=== PATIENT | female | born 1975 | race Caucasian/White ===

== ENCOUNTER 2020-02-24 13:29 | Outpatient (CLI) | payer OTHER, SELFPAY ==
[2020-02-24 14:04] LABS: Albumin Level 3.9 g/dL (3.5-5.1)
[2020-02-24 14:14] LABS: Prealbumin 21.9 mg/dL (17.6-36.0)
[2020-02-24 14:40] LABS: Iron 68 ug/dL (37-170)
[2020-03-03 12:25] LABS: Vitamin B1 19 nmol/L (8-30)
== END 2020-02-24 13:30 | disposition home or self-care (01) ==
PROVIDERS: Visit Provider Surgery Plastic and Reconstructive Surgery
DX: L57.4 Cutis laxa senilis (principal)
CPT/HCPCS: 36415; 82040; 83540; 84134; 84425

== ENCOUNTER 2020-02-26 00:26 | Outpatient (CLI) | payer OTHER, SELFPAY ==
[2020-02-26 18:31] LABS: SARS-CoV-2 RNA PCR Negative
== END 2020-02-26 00:27 | disposition home or self-care (01) ==
LOC: ANHCOVIDDT 00:26
PROVIDERS: Visit Provider Surgery Plastic and Reconstructive Surgery
DX: Z01.812 Encounter for preprocedural laboratory examination (principal); Z11.59 Encounter for screening for other viral diseases
CPT/HCPCS: 87635; C9803; U0003

== ENCOUNTER 2020-02-29 02:04 | Day surgery (SDC) | payer OTHER, SELFPAY ==
[2020-02-16 10:50] VITALS: BMI 29.8
[2020-02-29] VITALS (14 sets, daily range): BP systolic 112–143; BP diastolic 60–98; PULSE 79–114; RESP 16–20; TEMP 36.1–37.2; O2SAT 94–100
[2020-02-29] MEDS: LACTATED RINGERS 1,000 ML 30 ML IV CONT ×2 (06:40→14:59)
--- NOTE | 2020-02-29 06:41 | WPDHPUPDATE1 ---
History and Physical Update Update Date/Time: 02/29/20 06:41 History and Physical has been reviewed, including an updated exam of the patient. There are NO changes in the patient's condition. Risks, benefits, and alternatives have been discussed and questions answered. Patient agrees to proceed with procedure.
[2020-02-29 07:01] LABS: Urine Cotinine NEGATIVE
--- NOTE | 2020-02-29 07:16 | WPDANESEPPF ---
Anes - Initial Pre Proc Eval Procedure: Operation Date: 02/29/20 07:30 Proposed Procedures p Belt Lipectomy, - Javad Steen MD s Bilateral Lateral Breast Liposuction - Javad Steen MD s Brachioplasty - Javad Steen MD Date/Time: 02/29/20 07:16 Surgeon: Javad Steen MD Pre Op Diagnosis: skin laxity Patient Data Age: 44 Gender: F Height: 5 ft 1 in Weight: 71.67 kg Allergies Allergy/AdvReac Type Severity Reaction Status Date / Time No Known Allergies Allergy Verified 10/18/19 08:13 Home Medications Medication Instructions Recorded Confirmed Type cetirizine 10 mg capsule 10 mg PO DAILY 10/18/19 02/16/20 History fluticasone propionate 50 1 spray NASAL DAILY 10/18/19 02/16/20 History mcg/actuation nasal spray,suspension levothyroxine 125 mcg tablet 125 mcg PO DAILY 10/18/19 02/16/20 History Cd-I-wmfho-B12-L.acid,plan-inu 1 cap PO DAILY 02/16/20 02/16/20 History [Vitabex Iron] Laboratory Tests 02/29/20 06:26 Cotinine Negative Patient hx anesthesia problems: none Family hx anesthesia problems: none PMFSH Surgical History Surgical History History of gastric bypass Two thousand seventeen. Maximum weight 238 pounds. History of thyroidectomy History of tonsillectomy History of wisdom tooth extraction Social History Social History Smoking status: Never smoker Substance use: never Substance use type: does not use Living arrangements: with family Spiritual care concerns: No Anes - Eval Final PreProcedure Day of Procedure 02/29/20 07:16 Patient weight: overweight Heart: regular rate and rhythm Lungs: clear to auscultation Airway: Mallampati scale class II Neurological: alert and oriented Last oral intake: >/= 8 hours ASA classification: II Emergent: no Anesthetic plan: proceed Anesthesia type and monitoring: general ETT and standard monitoring Informed Consent: The patient's anesthetic plan and its attendant risks and benefits were discussed with the patient/family/POA. Questions were solicited and answers provided to the satisfaction of the patient/family/POA.
[2020-02-29] MEDS: ceFAZolin 2 GM/D5W 50 ML 2 GM/50 ML BAG IVPB (07:29)
[2020-02-29] MEDS: ceFAZolin SODIUM 1 GM VIAL 2 GM IV PUSH (11:51)
--- NOTE | 2020-02-29 14:34 | PM.PROC ---
Procedure Note - Detailed Date of procedure: 02/29/20 Pre-op diagnosis: skin laxity Post-op diagnosis: same Procedure performed: 1. Belt Lipectomy 2. Suction lipectomy bilateral lateral chest wall. 3. Bilateral brachioplasty Description of procedure: She is here today for the above procedures. Previously and again today the risks, benefits, alternatives were discussed in extensive detail. I wanted her to be very realistic about the risks involved as well as expectations. We discussed aftercare and what to monitor for. I was very upfront about the risks of wound breakdown leading to loss of skin, open wounds, and need for additional procedures with permanent abdominal deformity. We discussed DVT/PE risks and management. Made sure answered all of her questions to her satisfaction today and consent was obtained. She was marked in the preoperative holding area with their verification. While marking the posterior body lift I did have the patient flexed 20-30 degrees at waist to simulate the abdominoplasty closure. The patient was taken to the operating room. Anesthesia was provided by anesthesiology. A junior catheter was started. She was placed prone on the operating room table with care taken to protect all bony prominences. She was prepped and draped in a standard sterile fashion. A surgical time-out was taken. The area was tumesced with a tumescent solution for the planned resection as well as the planned suction lipectomy areas. I proceeded 1st with suction lipectomy. This was a 4 mm basket cannula using the S.A.F.E. technique. This was to a rolling pinch test. A 15 blade was used to make the upper insicison. dissection was continued elevating inferior just what was necessary for good tension-free closure. Placed the bed in quique-knife position to stimulate the abdominoplasty. At the sacral area midline a mass was noted which very card / calcified. It was not fixed. Sent to pathology. I irrigated copiously with saline solution and verified strict hemostasis. I closed with 2-0 Vicryl followed by 3-0 strata fix and running subcuticular 4-0 Monocryl and tissue glue. There was no tension on the closure. We then placed the patient supine on the operating room table. I used tumescent solution on bilateral arms as well as completion of the lateral chest wall liposuction areas. I completed the lateral chest wall liposuction 1st in the above technique to a rolling pinch test. I then proceeded the brachioplasty. I completed S.A.F.E. suction lipectomy of the arm completely defatting the area to be resected. Once I was confident with the removal I proceeded in a strip avulsion technique from proximal to distalal closing was we go using 2-0 Vicryl, 3-0 Stratafix, 4-0 Monocryl and ster-strips. We proceeded to the abdominoplasty. I placed the patient in a flexed position to verify the upper and lower markings would reach. I then placed her supine. A thorough abdominal examination was completed. Stab incisions were made and used tumescent solution. A 10 blade was used to make the upper incision. I continued dissection down to the level of fascia. Elevated just what was necessary for repair of the diastasis and discontinuous undermining otherwise. I then again flexed the bed to verify the upper skin flap would reach the lower markings without tension. Once verified I placed her supine once again and a 10 blade used to make the lower incision. I elevated up to level the umbilicus and left the umbilicus intact on a well-vascularized stalk. The intervening tissue was removed. A 2 mm blunt cannula and Exparel which was mixed 20 cc in 100 cc for a total volume of 120 cc I injected deep to the fascia bilaterally as well as along the incision lines. I plicated the diastasis recti using 0 PDO stratafix barbed suture. This was in 2 separate layers using 2 separate sutures as well. I repaired around the umbilicus leaving plenty of room for well-v
--- NOTE | 2020-02-29 16:22 | PC.NURSE ---
This patient, Claire Cartwright, was received from PACU on 02/29/20 at 1622. Personal belongings list checked and signed. Patient/family oriented to unit policies and routines
[2020-02-29] MEDS: LACTATED RINGERS 1,000 ML 125 ML IV CONT (16:47)
[2020-02-29] MEDS: MORPHINE SULFATE 2 MG/ML INJ IV PUSH ×2 (17:04→19:02)
[2020-02-29] MEDS: carisoprodoL 350 MG TABLET PO ×2 (18:29→23:13)
[2020-02-29] MEDS: ENOXAPARIN 40 MG/0.4 ML SYRINGE SUB-Q (19:07)
[2020-02-29] MEDS: DOCUSATE SODIUM 100 MG CAPSULE PO (19:08)
[2020-02-29] MEDS: oxyCODONE/ACETAMINOPHEN 5-325 MG TABLET PO (21:49)
[2020-03-01] MEDS: MORPHINE SULFATE 2 MG/ML INJ IV PUSH (02:29)
[2020-03-01 05:38] VITALS: BP 94/63; PULSE 105; RESP 16; TEMP 37.1; O2SAT 97
[2020-03-01] MEDS: carisoprodoL 350 MG TABLET PO ×2 (07:14→12:41)
[2020-03-01] MEDS: LEVOTHYROXINE SODIUM 125 MCG TABLET PO (07:14)
[2020-03-01] MEDS: oxyCODONE/ACETAMINOPHEN 5-325 MG TABLET PO ×2 (07:14→12:41)
[2020-03-01] MEDS: DOCUSATE SODIUM 100 MG CAPSULE PO (07:14)
[2020-03-01] MEDS: ENOXAPARIN 40 MG/0.4 ML SYRINGE SUB-Q (07:15)
--- NOTE | 2020-03-01 07:27 | WPDPN ---
Progress Note: A&P Assessment and Plan (1) Skin laxity: Code(s): L57.4 - Cutis laxa senilis Status: Acute Assessment and Plan: She is doing very well today. Will plan for discharge home. Today we had a lengthy discussion about the care. What monitor for. She understands the importance of ambulation. We discussed DVT prophylaxis and she is going to use ambulation as her method. She understands the advantages and disadvantages of this. She understands dressing Care. This was a lengthy open-ended conversation answering all of her questions to her and her 's satisfaction. Explained were available with any questions. I will see her back. (2) Localized adiposity: Code(s): E65 - Localized adiposity Status: Acute (3) History of gastric bypass: Code(s): Z98.84 - Bariatric surgery status Status: Acute (4) Hypothyroidism: Code(s): E03.9 - Hypothyroidism, unspecified Status: Acute Review of Systems Review of Systems: All systems reviewed & are unremarkable except as noted in HPI and below Exam Narrative: Exam Narrative: Incisions are healing well. No signs of infection. No hematoma. No seroma. No calf tenderness. Negative Homans. Const: General: comfortable, no acute distress, alert and awake; No acute distress Orientation/consciousness: oriented to person HENMT: Head: normal to inspection Ears: external ears normal General nose exam: Normal external nose present Face and sinus: normal facial exam Eyes: General: appearance normal, both eyes and all related structures Periorbital: periorbital findings normal Eyelids: eyelids normal Conjunctivae: conjunctivae normal Neck: Neck: normal visual inspection Chest: Chest palpation & inspection: normal inspection of the chest Resp: Effort & Inspection: normal respiratory effort and able to speak in complete sentences GI: Inspection: normal to inspection Neuro: General: oriented to person Psych: Appearance: grossly normal Mental Status: mental status grossly normal Objective Data Vital Signs Vital Signs: Vital Signs - 24 hr 02/29/20 14:58 02/29/20 15:10 02/29/20 15:25 Temperature 36.1 C L Pulse Rate 100 97 92 Respiratory Rate 17 16 20 Blood Pressure 139/91 H 143/98 H 143/89 H Pulse Oximetry 100 100 99 02/29/20 15:40 02/29/20 15:55 07/21/20 16:05 Temperature Pulse Rate 97 97 95 Respiratory Rate 20 17 18 Blood Pressure 141/89 H 133/86 134/85 Pulse Oximetry 96 94 97 02/29/20 16:30 02/29/20 16:45 02/29/20 17:00 Temperature 36.6 C Pulse Rate 91 91 89 Respiratory Rate 16 Blood Pressure 137/78 138/81 129/78 Pulse Oximetry 97 97 99 02/29/20 17:30 02/29/20 18:00 02/29/20 19:00 Temperature 37.2 C Pulse Rate 97 97 114 H Respiratory Rate 18 Blood Pressure 134/87 130/75 112/69 Pulse Oximetry 100 99 99 02/29/20 23:30 03/01/20 05:38 Temperature 36.9 C 37.1 C Pulse Rate 95 105 H Respiratory Rate 18 16 Blood Pressure 117/68 94/63 L Pulse Oximetry 100 97 Intake/Output Intake/Output: Intake & Output 02/27/20 02/28/20 02/29/20 03/01/20 23:59 23:59 23:59 23:59 Intake Total 400 420 Output Total 390 1600 Balance 10 -1180 Meds/Results Medications: Active Medications Generic Name Dose Route Start Last Admin Trade Name Freq PRN Reason Stop Dose Admin Carisoprodol 350 mg 02/29/20 18:00 03/01/20 07:14 Soma PO 350 mg Q6HR JOSE Administration Docusate Sodium 100 mg 02/29/20 21:00 03/01/20 07:14 Colace Capsule PO 100 mg Q12HR JOSE Administration Enoxaparin Sodium 40 mg 02/29/20 21:00 03/01/20 07:15 Lovenox SUB-Q 40 mg DAILY JOSE Administration Fluticasone Propionate 1 spray 03/01/20 09:00 Flonase 0.05% Nasal Bath NASAL DAILY JOSE Levothyroxine Sodium 125 mcg 03/01/20 06:30 03/01/20 07:14 Synthroid PO 125 mcg DAILY@0630 JOSE Administration Loratadine 10 mg 03/01/20 09:00 03/01/20 07:27 Cla
--- NOTE | 2020-03-01 07:32 | PM.DS ---
DS: Admitting Diagnosis Admitting Diagnosis Admitting Diagnosis: Skin laxity and localized adiposity DS: Discharge Diagnosis Discharge Diagnosis (1) Skin laxity: Code(s): L57.4 - Cutis laxa senilis Status: Acute Assessment and Plan: Will discharge home. Follow up in 1 week. Call with any questions or concerns. We had 45 minutes of discharge conversation with her and her to make sure they were well informed of management and what monitor for. (2) Localized adiposity: Code(s): E65 - Localized adiposity Status: Acute (3) History of gastric bypass: Code(s): Z98.84 - Bariatric surgery status Status: Acute (4) Hypothyroidism: Code(s): E03.9 - Hypothyroidism, unspecified Status: Acute DS: Summary Time Spent with Patient Time attestation: Total time spent providing and/or coordinating discharge services: 45 minutes Exam Narrative: Exam Narrative: Hands with normal sensation. Full range of motion. Incisions are healing well. No signs of infection. No hematoma. No seroma. No calf tenderness. Negative Homans. Const: General: comfortable, no acute distress, alert and awake; No acute distress Orientation/consciousness: oriented to person HENMT: Head: normal to inspection Ears: external ears normal General nose exam: Normal external nose present Face and sinus: normal facial exam Eyes: General: appearance normal, both eyes and all related structures Periorbital: periorbital findings normal Eyelids: eyelids normal Conjunctivae: conjunctivae normal Neck: Neck: normal visual inspection Chest: Chest palpation & inspection: normal inspection of the chest Resp: Effort & Inspection: normal respiratory effort and able to speak in complete sentences GI: Inspection: normal to inspection Neuro: General: oriented to person Psych: Appearance: grossly normal Mental Status: mental status grossly normal DS: Data Data Completed and Pending Pending studies at discharge: Pending at discharge 02/29/20 09:39 Surgical [PTH] Routine Discharge Plan Discharge Patient Disposition: Home, Self-Care Discharge Instructions: POST OPERATIVE DISCHARGE INSTRUCTIONS FOR Belt Lipectomy Liposuction Abdominoplasty JAVAD STEEN M.D. [facility] [address] [place] [address] [address] driving for 24 hours after anesthesia and while you are taking pain medication. Take all prescribed medication as directed Diet as tolerated. No lifting or activity that raises blood pressure for 48 hours. Regular walking / ambulation. No showering until directed to. Once you shower do not take pain medication before showering as the combination of medication and heat may cause you to feel dizzy or pass out. No pools or tubs for 2 weeks. Call with any questions or concerns. Slowly stand up straight as tolerated. No straining or lifting more than 20 pounds for 6 weeks. Dressing Care: Continue arm wraps and abdominal binder 23 hours per day. If you have any questions or concerns, please call the office . If it is after hours you will be directed to the distance education faculty liaison exchange. Shortness of breath, chest pain, or other medical emergency dial 911 / proceed to the Emergency Room. Follow-up/Referrals: Javad Steen MD [Physician] - 1 Week Discharge Medications: Continued levothyroxine [Synthroid] 125 mcg tablet 125 mcg PO DAILY RF: 0 fluticasone propionate 50 mcg/actuation spray,suspension 1 spray NASAL DAILY RF: 0 Zyrtec 10 mg capsule 10 mg PO DAILY RF: 0 Vitabex Iron 65 mg iron- 50 mg-1 mg DFE Capsule 1 cap PO DAILY RF: 0
--- NOTE | 2020-03-01 07:34 | WPDANESPN ---
Anes - Prog Note Post-Op Date/Time: 03/01/20 07:34 Cardiovascular status: normal Respiratory status: normal Airway patency: baseline Mental status: baseline Post-Op hydration status: normal Vital Signs: Last Vital Signs Temp 37.1 C 03/01/20 05:38 Pulse 105 H 03/01/20 05:38 Resp 16 03/01/20 05:38 BP 94/63 L 03/01/20 05:38 Pulse Ox 97 03/01/20 05:38 Pain Score (VAS): 5/10 self reported pain scale at rest. Patient receiving PRN medications with relief. Patient appears comfortable at time of assessment with patient resting in bed. Support person at bedside. I/O: Intake & Output 02/29/20 02/29/20 03/01/20 15:59 23:59 07:59 Intake Total 150 250 420 Output Total 388 581 2512 Balance 10 0 -1180 Post-procedural complaints: none Patient Feedback: Patient satisfied with anesthetic care.
--- NOTE | 2020-03-01 07:35 | WPDANESPN ---
Anes - Prog Note Post-Op Date/Time: 03/01/20 07:35 Cardiovascular status: normal Respiratory status: normal Airway patency: baseline Mental status: baseline Post-Op hydration status: normal Vital Signs: Last Vital Signs Temp 37.1 C 03/01/20 05:38 Pulse 105 H 03/01/20 05:38 Resp 16 03/01/20 05:38 BP 94/63 L 03/01/20 05:38 Pulse Ox 97 03/01/20 05:38 I/O: Intake & Output 02/29/20 02/29/20 03/01/20 15:59 23:59 07:59 Intake Total 150 250 420 Output Total 943 315 6479 Balance 10 0 -1180 Post-procedural complaints: none Patient Feedback: Patient satisfied with anesthetic care.
[2020-03-01 08:00] VITALS: BP 101/60; PULSE 117; RESP 18; TEMP 36.5; O2SAT 97
--- NOTE | 2020-03-01 10:00 | PC.NURSE ---
Pt and her shown how to remove and reapply binder, bra, and jsoe wraps per Dr. Steen's instructions. They both verbalized understanding. Extra supplies sent with pt.
== END 2020-03-01 15:46 | disposition home or self-care (01) ==
LOC: ANHSURGERY 14:57 → ANHOB2 15:30
PROVIDERS: Visit Provider Surgery Plastic and Reconstructive Surgery
PROC: (CPT 15830; principal; 2020-02-29 07:30)
PROC: (CPT 15877; 2020-02-29 07:30)
PROC: (CPT 15836; 2020-02-29 07:30)
DX: Z41.1 Encounter for cosmetic surgery (principal); L57.4 Cutis laxa senilis; Z98.84 Bariatric surgery status
CPT/HCPCS: 15830; 15847; 15877; 15836; 36415; 80307; 88304; 99199; A9270; C9290; J0131; J0171; J0330; J0690; J1100; J1170; J1650; J2250; J2270; J2405; J2704; J3010; J7120

== ENCOUNTER 2020-04-22 01:23 | Outpatient (CLI) | payer OTHER, SELFPAY ==
[2020-04-22 18:03] LABS: SARS-CoV-2 RNA PCR Negative
== END 2020-04-22 01:24 | disposition home or self-care (01) ==
PROVIDERS: Visit Provider Surgery Plastic and Reconstructive Surgery
DX: Z01.812 Encounter for preprocedural laboratory examination (principal); Z20.828 Contact with and (suspected) exposure to other viral communicable diseases
CPT/HCPCS: 87635; C9803; U0003

== ENCOUNTER 2020-04-25 01:45 | Day surgery (SDC) | payer OTHER, SELFPAY ==
[2020-04-13 10:53] VITALS: BMI 30.2
--- NOTE | 2020-04-24 11:07 | WPDANESEPPF ---
Anes - Initial Pre Proc Eval Procedure: Operation Date: 04/25/20 07:30 Proposed Procedures p Bilateral Medial Thigh Lift - Javad Steen MD Date/Time: 04/24/20 11:07 Surgeon: Javad Steen MD Pre Op Diagnosis: Skin Laxity Patient Data Age: 44 Gender: F Height: 5 ft Weight: 70.31 kg Allergies Allergy/AdvReac Type Severity Reaction Status Date / Time No Known Allergies Allergy Verified 04/13/20 10:53 Home Medications Medication Instructions Recorded Confirmed Type cetirizine 10 mg capsule 10 mg PO DAILY 10/18/19 04/13/20 History fluticasone propionate 50 1 spray NASAL BID 10/18/19 04/13/20 History mcg/actuation nasal spray,suspension levothyroxine 125 mcg tablet 125 mcg PO DAILY 10/18/19 04/13/20 History Vitabex Iron 1 cap PO DAILY 02/16/20 04/13/20 History multivitamin 1 tablet PO DAILY 04/13/20 04/13/20 History Patient hx anesthesia problems: none Family hx anesthesia problems: none PMFSH Surgical History Surgical History (Updated 03/20/20 @ 16:02 by Tawny Malcolm RECORDS ANALYSIS MANAGER) History of cosmetic plastic surgery belt lipectomy and bilateral brachioplasty, chest wall lipectomy 02/2020 History of gastric bypass Two thousand seventeen. Maximum weight 238 pounds. History of thyroidectomy History of tonsillectomy History of wisdom tooth extraction Social History Social History Smoking status: Never smoker Substance use: never Substance use type: does not use Spiritual care concerns: No Anes - Eval Final PreProcedure Day of Procedure 04/24/20 11:07 Patient weight: overweight Heart: regular rate and rhythm Lungs: clear to auscultation Airway: Mallampati scale class II Neurological: alert and oriented Last oral intake: >/= 8 hours ASA classification: II Emergent: no Anesthetic plan: proceed Anesthesia type and monitoring: general LMA and standard monitoring Informed Consent: The patient's anesthetic plan and its attendant risks and benefits were discussed with the patient/family/POA. Questions were solicited and answers provided to the satisfaction of the patient/family/POA.
[2020-04-25] VITALS (8 sets, daily range): BP systolic 100–146; BP diastolic 67–88; PULSE 71–94; RESP 13–17; TEMP 36.2–37.2; O2SAT 97–100
[2020-04-25] MEDS: LACTATED RINGERS 1,000 ML 30 ML IV CONT ×2 (06:40→10:14)
[2020-04-25 06:49] LABS: Urine Cotinine NEGATIVE
--- NOTE | 2020-04-25 07:08 | WPDHPUPDATE1 ---
History and Physical Update Update Date/Time: 04/25/20 07:08 History and Physical has been reviewed, including an updated exam of the patient. There are NO changes in the patient's condition. Risks, benefits, and alternatives have been discussed and questions answered. Patient agrees to proceed with procedure.
[2020-04-25] MEDS: ceFAZolin 2 GM/D5W 50 ML 2 GM/50 ML BAG IVPB (07:23)
--- NOTE | 2020-04-25 09:19 | SUR.OPER ---
checked out 1 vial fentanyl and delivered to [facility] fishing lure assembler for this patient
--- NOTE | 2020-04-25 09:31 | SUR.OPER ---
EBL:20cc
--- NOTE | 2020-04-25 09:55 | PM.PROC ---
Procedure Note - Detailed Date of procedure: 04/25/20 Pre-op diagnosis: Skin Laxity Post-op diagnosis: same Procedure performed: Bilateral medial thigh lift Description of procedure: Patient was marked in the preoperative holding area with her verification. Risks, benefits, alternatives were discussed. We discussed realistic expectations of outcome in aftercare. Discussed what monitor for. All questions answered and consent obtained. She was taken to the operating room placed supine on the operating room table. Anesthesia was provided by anesthesiology and prepped and draped in the standard sterile fashion. She had SCDs throughout the procedure. Surgical time-out was taken. Stab incisions were made based on her preoperative markings. I tumesced with a tumescent solution. Once adequate time for hemostasis using the S.A.F.E. technique suction lipectomy was completed of bilateral medial thighs and in particular the planned resection area I deep fat of this until completely defatted. Doing a cut as you go strip avulsion technique from proximal the distal I tested area to be resected and excised with a 10 blade. This was immediately stapled as we went to make sure tension-free closure. I closed with 2-0 Vicryl followed by 3-0 strata fix and running subcuticular 4-0 Monocryl. Steri-Strips were placed. This is followed by top of foam and Shaquille wrap. She tolerated well. Anesthesia: GLMA Surgeon: Javad Steen MD Estimated blood loss (mL): 20 Drains: No Packing: No Pathology: none sent Complications: No immediate complications Condition: stable Disposition: PACU Findings: 1600cc of lipoaspirate (total volume)
--- NOTE | 2020-04-25 10:26 | SUR.PREOP ---
1026-PT TRANSPORTED PER W/C TO NUCLEAR MEDICINE FOR INJECTION.
== END 2020-04-25 12:02 | disposition home or self-care (01) ==
PROVIDERS: Visit Provider Surgery Plastic and Reconstructive Surgery
PROC: (CPT 15832; principal; 2020-04-25 07:30)
DX: Z41.1 Encounter for cosmetic surgery (principal); L57.4 Cutis laxa senilis; Z79.899 Other long term (current) drug therapy; Z98.84 Bariatric surgery status
CPT/HCPCS: 15832; 15879; 80307; A9270; J0171; J0690; J1100; J2250; J2370; J2405; J2704; J3010; J7120